=== PATIENT | male | born 1975 | race Caucasian/White ===

== ENCOUNTER 2020-07-27 08:01 | Outpatient (REF) | payer OTHER, SELFPAY | END 2020-07-27 08:02 | disposition home or self-care (01) | LOC: HO.LAB 08:01 | PROVIDERS: Visit Provider Internal Medicine | DX: Z20.828 Contact with and (suspected) exposure to other viral communicable diseases (principal) | CPT/HCPCS: 87635 ==

== ENCOUNTER 2020-08-05 12:45 | Outpatient (REF) | payer OTHER, SELFPAY | END 2020-08-05 12:46 | disposition home or self-care (01) | LOC: HO.LAB 12:45 | PROVIDERS: Visit Provider Internal Medicine | DX: Z20.828 Contact with and (suspected) exposure to other viral communicable diseases (principal) | CPT/HCPCS: 87635 ==

== ENCOUNTER 2020-09-09 17:13 | Outpatient (REF) | payer OTHER, SELFPAY | END 2020-09-09 17:14 | disposition home or self-care (01) | LOC: HO.LAB 17:13 | PROVIDERS: PCP Pediatrics; Visit Provider Internal Medicine | DX: Z20.828 Contact with and (suspected) exposure to other viral communicable diseases (principal) | CPT/HCPCS: C9803; U0003 ==

== ENCOUNTER 2021-09-09 12:28 | Outpatient (REF) | payer OTHER, SELFPAY | END 2021-09-09 12:29 | disposition home or self-care (01) | LOC: HO.LAB 12:28 | PROVIDERS: PCP Pediatrics; Visit Provider Internal Medicine | DX: Z20.822 Contact with and (suspected) exposure to COVID-19 (principal) | CPT/HCPCS: C9803; U0003; U0005 ==